=== PATIENT | female | born 1995 | race Caucasian/White ===

== ENCOUNTER 2017-01-27 22:48 | Emergency (ER) | payer OTHER ==
[~2017-01-27] VITALS: Ht 172.7 cm; Wt 104.5 kg
[2017-01-27 22:51] VITALS: TEMP 98
[2017-01-28] MEDS ORDERED: PERCOCET 325 MG1 TA2 PO (00:13)
[2017-01-28 00:30] VITALS: BP 141/79; PULSE 91
== END 2017-01-28 00:30 | disposition home or self-care (01) ==
LOC: COL.ER 22:48
DX: S92.355A Nondisplaced fracture of fifth metatarsal bone, left foot, initial encounter for closed fracture (principal); W10.9XXA Fall (on) (from) unspecified stairs and steps, initial encounter; Y92.038 Other place in apartment as the place of occurrence of the external cause
CPT/HCPCS: J1170; J2270